=== PATIENT | male | born 1990 | race Caucasian/White ===

== ENCOUNTER 2023-07-27 13:45 | Emergency (ER) | payer OTHER, SELFPAY ==
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
[2023-07-27 13:47] VITALS: BP 108/89; PULSE 68; RESP 18; TEMP 37.2; O2SAT 99
[2023-07-27] MEDS: HYDROcodone/acetaminophen (*CRX) 5-325 MG TABLET 1 TAB PO (15:37)
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
== END 2023-07-27 18:09 | disposition home or self-care (01) ==
PROVIDERS: Emergency Provider Emergency Medicine
DX: S42.114A Nondisplaced fracture of body of scapula, right shoulder, initial encounter for closed fracture (principal); V28.49XA Other motorcycle driver injured in noncollision transport accident in traffic accident, initial encounter
CPT/HCPCS: 71046; 73010; 73030; 99284; A4565; A9270